=== PATIENT | male | born 1970 | race Caucasian/White ===

== ENCOUNTER 2016-12-27 13:28 | Emergency (ER) | payer OTHER ==
[2016-12-27] MEDS ORDERED: MORPHINE 4 MG/ML 1ML SYRINGE IV ONE (13:45)
[2016-12-27] MEDS ORDERED: MORPHINE 2 MG/ML 1ML SYRINGE IV ONE ×2 (14:15→15:30)
[2016-12-27] MEDS ORDERED: ONDANSETRON 4MG/2ML VIAL (J2405) IV ONE ×2 (14:15→17:00)
--- NOTE | 2016-12-27 14:45 | REP ---
MAXILLOFACIAL CT WITHOUT CONTRAST: HISTORY: Trauma. There are fractures of the medial and lateral boswell and floor of the right orbit. There are fracture of the anterior and lateral boswell of the right maxillary sinus and anterior right maxilla. There is a fracture of the right nasal bone. There is enlargement of the right inferior rectus muscle. Increased density is present in the inferolateral aspect of the right orbit. These findings are consistent with edema and/or hematoma. The remaining right rectus muscles, right globe, and optic nerve are normal in appearance. Contents in the left orbit are normal. There is almost complete opacification of the right maxillary sinus. There is mild opacification of the right ethmoid sinus. Soft tissue swelling is present over the right orbit and maxilla. IMPRESSION: Facial bone fractures as described above. Signed by Candelario Hardin MD 12/27/2016 02:48 P
[2016-12-27] MEDS ORDERED: CYCLOPENTOLATE 2% OPHTH SOLN OD ONE (16:00)
[2016-12-27] MEDS ORDERED: NORC1TAB4 PO (17:20)
[2016-12-27] MEDS ORDERED: AUGM875T27 PO ×2 (17:20→17:43)
[2016-12-27] MEDS ORDERED: PRED20TA PO ×2 (17:20→17:43)
[2016-12-27] MEDS ORDERED: NORCOTAB PO (17:43)
[2016-12-27 18:04] VITALS: BP 136/87
--- NOTE | 2016-12-27 20:52 | CR ---
DATE OF CONSULTATION: 12/27/2016 CHIEF COMPLAINT: Right orbital fracture. HISTORY OF PRESENT ILLNESS: This is a 46-year-old male presenting to the emergency department with right eye pain after using a wood bufferer at home. The patient notes that upon trying to remove a tree, the branch snapped back, hit him in the right face, and he immediately collapsed to the ground, clutching the right side of his face. Of note, he states he was wearing protective eyewear at the time of the injury. The patient denies any loss of consciousness. At that time there was a momentary "blackening" of vision in the right eye but has subsequently returned to normal upon arrival to the emergency department. The patient has some right eye pain, which is increased on right upgaze. A CT scan of the head and orbits was performed in the ER and a right lateral and floor orbital fracture was identified. An ophthalmology consultation was called at that time. PAST MEDICAL HISTORY: Noncontributory. PAST SURGICAL HISTORY: No prior ocular surgery or use of drops. SOCIAL HISTORY: Tobacco use ALLERGIES: Denies allergies. PHYSICAL EXAMINATION: Uncorrected visual acuity is 20/30 +2 in the right eye, the left eye 20/30. Intraocular pressure by Andrzej-Pen was 11 in the right eye, no increased eye pressure in upgaze, 10 in the left eye. Confrontation of visual schmitt was full bilaterally. Extraocular movements were full bilaterally with no evidence of restriction in any gaze in the right eye or left eye. No hypoglobus or enophthalmos. Pupils were round, reactive, and equal bilaterally, no afferent defect was noted OU Slit-lamp examination: Lids, lashes, adnexa: right inferior lid ecchymosis, mild laceration of the right face not involving the canthus Conjunctiva/Sclera: mild conjunctival injection Anterior chamber: shallow and quiet, no hypopyon no hyphema or evidence of angle recession Iris flat OU Dilated fundus exam was deferred due to the patient's shallow anterior chamber and risk of angle closure. A limited 90 diopter examination was performed with the slit-lamp. Cup-to-disc ratio was 0.25 in the right, 0.3 in the left, no evidence of optic neuropathy or hemorrhage OU Macula no hemorrhage or edema OU Vessels were normal caliber without hemorrhage. Peripheral examination was limited due to lack of dilation but appeared to be grossly normal. Imaging: CT of orbits showed right lateral wall and orbital floor fracture, no entrapment or open globe, opacification of right maxillary sinus ASSESSMENT AND PLAN: 1. Right lateral wall and orbital floor fractures without extraocular muscle entrapment. 2. Right eye pain. 3. Shallow anterior chamber PLAN: There is no evidence by my exam of ocular involvement or entrapment at this time. On CT there is obvious right lateral wall fracture and orbital floor fracture with some edema of the inferior rectus. Start prednisone 20 mg by mouth daily for 1 week to minimize edema. Additionally, would recommend Augmentin to cover for co-infection with inferior fracture and connection to sinus. Arrangements should also be made to followup with an orbital surgeon for possible repair of fracture. Thank you for this consultation, please call if there are any questions. DANIELLE
== END 2016-12-27 18:06 | disposition home or self-care (01) ==
LOC: EDBD 13:28 → M ED 15:25
DX: S02.31XA Fracture of orbital floor, right side, initial encounter for closed fracture (principal); W22.8XXA Striking against or struck by other objects, initial encounter; Y92.9 Unspecified place or not applicable; Y93.89 Activity, other specified; Y99.9 Unspecified external cause status
CPT/HCPCS: 36415; 70486; 96374; 96375; 96376; 99283; J2405